=== PATIENT | female | born 1990 | race Caucasian/White ===

== ENCOUNTER 2018-10-13 16:56 | Emergency (ER) | payer SELFPAY | END 2018-10-13 18:12 | disposition home or self-care (01) | LOC: MADERS 16:56 | DX: T26.02XA Burn of left eyelid and periocular area, initial encounter (principal); X12.XXXA Contact with other hot fluids, initial encounter | CPT/HCPCS: 99283 ==

== ENCOUNTER 2022-05-20 11:25 | Emergency (ER) | payer SELFPAY | END 2022-05-20 12:00 | disposition home or self-care (01) | LOC: MADERS 11:25 | DX: J02.9 Acute pharyngitis, unspecified (principal); R59.1 Generalized enlarged lymph nodes | CPT/HCPCS: 99283 ==